=== PATIENT | male | born 1995 | race African-American/Black ===

== ENCOUNTER 2025-02-04 10:52 | Emergency (ER) | payer MEDICAID, MEDICARE, SELFPAY ==
[2025-02-04 11:07] VITALS: BP 170/111
[2025-02-04 11:28] LABS: % Basophils 0.5 % (0-2); % Eosinophils 0.7 % (0-6); % Immature Granulocytes 0.7 % (0-0.5); % Lymphocytes 23.3 % (20.5-51.1); % Monocytes 8.3 % (1.7-9.3); % Neutrophils 66.5 % (42.2-75.2); Absolute Eosinophils 0.1 10^3/uL (0-0.7); Absolute Immature Granulocytes 0.1 10^3/uL (0-0.05); Absolute Lymphocytes 1.9 10^3/uL (1.2-3.4); Absolute Monocytes 0.7 10^3/uL (0.1-0.6); Absolute Neutrophils 5.5 10^3/uL (1.4-6.5); Hematocrit 51.9 % (39.0-52.0); Hemoglobin 17.6 g/dL (13.0-18.0); Mean Corp Hgb Conc. 33.9 g/dL (33.0-37.0); Mean Corpuscular Hgb 29.5 pg (27.0-31.0); Mean Corpuscular Volume 87.1 fL (80.0-94.0); Mean Platelet Volume 9.1 fL (7.4-10.4); Nucleated Red Blood Cells % 0 % (-); Platelet Count 254 10^3/uL (130-400); Red Blood Cell Count 5.96 10^6/uL (4.70-6.10); Red Cell Dist. Width 12.3 % (11.5-14.5); White Blood Cell Count 8.3 10^3/uL (4.8-10.8)
[2025-02-04 11:44] LABS: ALT (SGPT) 32 U/L (0-50); AST (SGOT) 25 U/L (17-59); Albumin 5.4 g/dl (3.5-5.0); Alkaline Phosphatase 52 U/L (38-126); Blood Urea Nitrogen 15 mg/dl (9-20); Calcium 10.3 mg/dl (8.4-10.2); Carbon Dioxide 23 mmol/L (22-30); Chloride 108 mmol/L (98-107); Glucose 99 mg/dl (70-99); Lipase 84 U/L (23-300); Potassium 4.5 mmol/L (3.5-5.1); Sodium 142 mmol/L (135-145); eGFR > 60.00
[2025-02-04 13:18] VITALS: BP 168/78
--- NOTE | 2025-02-04 14:09 | ED.GENMED ---
History of Present Illness
General
Chief Complaint: Abdominal Pain
Source: patient
Exam Limitations: none
Time Seen by Provider: 02/04/25 13:00
Nursing documentation reviewed up to this point in time: agreed with
History of Present Illness
History of Present Illness:
Patient presents to ED secondary to persistent right-sided abdominal pain with decreased appetite over the past 5 days. Abdominal pain described as crampy, nonradiating, without any alleviating or exacerbating factors. Denies fever or chills.
Denies vomiting or diarrhea. Denies recent travel. Denies sick contact. Denies recent change in diet. Patient unfortunate has had number of similar symptoms in the past and appears to be recurrent. Patient was adopted as a child, as such,
family history is unknown.
Review of Systems
Review of Systems
Allergies reviewed?: Yes
All Other Systems: ROS reviewed and negative except as documented in HPI and ROS
Constitutional: Reports no symptoms; Denies fever
EENT: Reports no symptoms
Respiratory: Reports no symptoms
Cardiac: Reports no symptoms
ABD/GI: Reports abdominal pain; Denies vomiting or diarrhea
Musculoskeletal: Reports no symptoms
Skin: Reports no symptoms
Neurological: Reports no symptoms
Phy Exam
Physical Exam
Physical Exam:
Physical Exam
General: no apparent distress, not acutely ill. afebrile
Head: nc/at. eomi
Neck: supple. no meningeal signs.
Heart: s1/s2 regular rate and rhythm
Lungs: no acute respiratory distress. clear bilaterally
Abdomen: normal bowel sounds. no distention. mild epigastric/RUQ tenderness to palpation
Neuro: alert and oriented. no focal neurological deficits
Skin: no rash
Psychiatric: well kept. interactive and cooperative
Extremities: no edema. no calf tenderness.
Course
Orders/Labs/Results
Orders:
Orders
02/04/25 11:16
Complete Blood Count/With Diff Urgent
Comprehensive Metabolic Panel Urgent
Lipase Urgent
02/04/25 13:56
US Abdomen Complete/Upper Urgent
Comment:
Reason For Exam: RUQ/epigastric pain
Abnormal Lab Results
02/04/25
11:16
Abs Immat Gran (auto) 0.1 H 10^3/uL
(0-0.05)
Absolute Monos (auto) 0.7 H 10^3/uL
(0.1-0.6)
Immature Gran % 0.7 H %
(0-0.5)
Chloride 108 H mmol/L
(98-107)
Calcium 10.3 H mg/dl
(8.4-10.2)
Total Protein 9.0 H g/dl
(6.3-8.2)
Albumin 5.4 H g/dl
(3.5-5.0)
02/04/25 11:16
02/04/25 11:16
Vital Signs
Initial and Last Documented VS:
Initial Vital Signs
Temp Pulse Resp BP Pulse Ox
98.7 F 82 20 170/111 99
02/04/25 11:07 02/04/25 11:07 02/04/25 11:07 02/04/25 11:07 02/04/25 11:07
Last Documented Vital Signs
Temp Pulse Resp BP Pulse Ox
98.7 F 72 18 160/72 98
02/04/25 11:07 02/04/25 15:34 02/04/25 15:34 02/04/25 15:34 02/04/25 15:34
MDM/Problems Addressed
MDM/Problems Addressed:
Patient with an unremarkable workup in ED, including blood work and ultrasound. Patient otherwise remains afebrile, hemodynamically stable, and nontoxic-appearing. As patient has had CT abdomen pelvis with similar complaint in the recent past,
does not feel that patient will need repeat imaging studies at this time, especially with patient being afebrile and tolerating p.o. at home. As such, patient will be discharged home at this time, with recommendation to start PPI along with
Carafate, as well as GI consultation as an outpatient.
Prior to discharge, an appt made for the patient with GI office for next Monday. Pt otherwise is afebrile, hemodynamically stable, and neurologically intact at time of discharge, to the care of his father.
*Critical Care Note
Total Time (30-74mins, 75-104mins- exclusive of procedures): Not Applicable
ED Attending Note
-
Portions of this chart may have been created with voice recognition software.� Occasional wrong word or��sound alike� substitutions may have occurred due to the inherent limitations of voice recognition software.
Discharge Plan
Departure
Patient Disposition: Home (Routine Discharge)
Date of Disposition: 02/04/25
Time of Disposition: 16:06
Patient with high blood pressure during this ER visit?: Yes
Condition: Good
Discharge Problem:
Abdominal pain
Instructions: [place] diet, Abdominal Pain
Prescriptions:
New
sucralfate [Carafate] 100 mg/mL suspension
10 ml PO ACHS Qty: 400 0RF
Referrals:
Jozef Law DO [Family Provider] -
[place]iana Smiley MD [Active] -
Activity Restrictions/Additional Instructions:
As discussed, please follow-up with your primary care physician and/or referred GI physician for further events or treatment. You will receive a phone call from GI office with an appointment date. Your prescription has been sent electronically
to [facility] pharmacy in [place]. Please also consider adding PPI, i.e. Protonix, Nexium, Prilosec, Pepcid.
Interventions
Interventions:
*Risk Screen - Suicide Last Done: 02/04/25 11:07
*General Assessment Last Done: 02/04/25 11:07
*Neglect/Abuse Screening Last Done: 02/04/25 11:07
*ED- Fall Risk Assessment Last Done: 02/04/25 13:09
*Nursing Disposition Last Done: 02/04/25 16:15
EI-Xkzwcr-Gltkwwipqf Assessment Last Done: 02/04/25 13:09
Discharge Date and Time
Discharge Date/Time: 02/04/25 16:22
Print Language: YORUBA
[2025-02-04 15:34] VITALS: BP 160/72
== END 2025-02-04 16:22 | disposition home or self-care (01) ==
LOC: EMR 10:52
PROVIDERS: Emergency Medicine; EMERGENCY PHYSICIAN Emergency Medicine; FAMILY PHYSICIAN Internal Medicine
DX: R10.9 Unspecified abdominal pain (principal); R63.8 Other symptoms and signs concerning food and fluid intake
CPT/HCPCS: 99284; 76700; 80053; 83690; 85025

== ENCOUNTER → 2025-02-13 10:09 | Outpatient (REF) | payer MEDICARE, OTHER, SELFPAY ==
[2025-02-15 21:19] LABS: Calprotectin, Fecal 14 ug/g (<=49)
== END ==
LOC: REG 10:09
PROVIDERS: ATTENDING PHYSICIAN Student in an Organized Health Care Education/Training Program; FAMILY PHYSICIAN Internal Medicine
DX: R10.9 Unspecified abdominal pain (principal)
CPT/HCPCS: 83993

== ENCOUNTER 2025-03-11 06:26 | Day surgery (SDC) | payer MEDICARE, MEDICAID, SELFPAY | END 2025-03-11 15:09 | disposition home or self-care (01) | LOC: GI 06:26 | PROVIDERS: ATTENDING PHYSICIAN Student in an Organized Health Care Education/Training Program | DX: R10.31 Right lower quadrant pain (principal); K57.30 Diverticulosis of large intestine without perforation or abscess without bleeding; K29.80 Duodenitis without bleeding; K31.89 Other diseases of stomach and duodenum; K20.90 Esophagitis, unspecified without bleeding | CPT/HCPCS: 43239; 45378; 88305; 88342 ==

== ENCOUNTER → 2025-05-06 07:24 | Outpatient (REF) | payer MEDICARE, SELFPAY | LOC: MRI 07:24 | PROVIDERS: ATTENDING PHYSICIAN Student in an Organized Health Care Education/Training Program; FAMILY PHYSICIAN Internal Medicine | DX: R59.0 Localized enlarged lymph nodes (principal); R93.5 Abnormal findings on diagnostic imaging of other abdominal regions, including retroperitoneum | CPT/HCPCS: 74183; A9575 ==

== ENCOUNTER → 2025-06-02 12:20 | Outpatient (REF) | payer MEDICARE, SELFPAY | LOC: REG 12:20 | PROVIDERS: ATTENDING PHYSICIAN Student in an Organized Health Care Education/Training Program | DX: R10.84 Generalized abdominal pain (principal) | CPT/HCPCS: 83013 ==

== ENCOUNTER → 2025-06-23 08:40 | Outpatient (REF) | payer MEDICARE, SELFPAY ==
[2025-06-23 11:18] LABS: ALT (SGPT) 44 U/L (0-50); AST (SGOT) 31 U/L (17-59); Albumin 5.0 g/dl (3.5-5.0); Alkaline Phosphatase 48 U/L (38-126); Blood Urea Nitrogen 15 mg/dl (9-20); Calcium 9.7 mg/dl (8.4-10.2); Carbon Dioxide 27 mmol/L (22-30); Chloride 105 mmol/L (98-107); Glucose 77 mg/dl (70-99); Potassium 4.7 mmol/L (3.5-5.1); Sodium 141 mmol/L (135-145); Total Protein 8.2 g/dl (6.3-8.2); eGFR > 60.00
== END ==
LOC: REG 08:40
PROVIDERS: ATTENDING PHYSICIAN Internal Medicine Hematology & Oncology; FAMILY PHYSICIAN Internal Medicine
DX: R79.9 Abnormal finding of blood chemistry, unspecified (principal)
CPT/HCPCS: 36415; 80053